=== PATIENT | female | born 1955 | race Caucasian/White ===

== ENCOUNTER 2016-10-25 07:46 | Inpatient (IN) | payer BC ==
[2016-10-24 11:29] VITALS: BMI 31.2
[~2016-10-25] VITALS: Ht 154.9 cm; Wt 79.5 kg
[2016-10-25] VITALS (31 sets, daily range): BP systolic 120–161; BP diastolic 50–75; PULSE 64–97; RESP 11–21; Ht 154.9 cm; Wt 79.5 kg
[~2016-10-25 07:46] MED LIST: CEFAZOLIN 1 GM INJ ONE; CEFAZOLIN 1 GM/50 ML (PMX) 50 ML IVPB SCH
[2016-10-25] MEDS ORDERED: ESCI10TA PO (08:30)
[2016-10-25] MEDS ORDERED: LEVE750T70 PO (08:30)
[2016-10-25] MEDS ORDERED: BENA20TA48 PO (08:30)
[2016-10-25] MEDS ORDERED: LEVO50TA71 PO (08:31)
[2016-10-25] MEDS ORDERED: SIMV40TA3 PO (08:31)
--- NOTE | 2016-10-25 09:30 | RADRPT ---
PROCEDURE: XR Chest. CLINICAL INDICATION: Chest pain, preoperative TECHNIQUE: Single frontal view of the chest was obtained. COMPARISON: None FINDINGS: The heart is within normal limits. The thoracic aorta is calcified. There are mild right lower lobe linear atelectatic changes. The lungs are otherwise clear. There is no pleural effusion or pneumothorax. RPTAT: AA IMPRESSION: Mild right lower lobe linear atelectatic changes. Calcified aorta consistent with atherosclerotic disease. .Chris Bruce MD, MD Date Time Electronically viewed and signed by .Chris Bruce MD, MD on 10/25/2016 09:30 .S/
[2016-10-25 09:47] LABS: ADD SCAN DIFF NO
[2016-10-25] MEDS ORDERED: ACETAMINOPHEN 1000MG/100ML IV 100 ML ONE (09:49)
[2016-10-25 09:51] LABS: BASOPHILS % 0.5 % (0.0-2.0); EOSINOPHILS # 0.1 10^3/ul (0.0-0.5); EOSINOPHILS % 2.2 % (0.0-7.0); HEMATOCRIT 33.1 % (37.0-47.0); HEMOGLOBIN 11.1 g/dl (12.0-16.0); LYMPHOCYTES # 1.9 10^3/ul (0.8-2.9); LYMPHOCYTES % 50.5 % (15.0-51.0); MEAN CORPUSCULAR HEMOGLOBIN 32.8 pg (29.0-33.0); MEAN CORPUSCULAR HGB CONC 33.5 g/dl (32.0-37.0); MEAN CORPUSCULAR VOLUME 97.9 fl (82.0-101.0); MEAN PLATELET VOLUME 9.6 fl (7.4-10.4); MONOCYTE # 0.3 10^3/ul (0.3-0.9); MONOCYTES % 8.2 % (0.0-11.0); NEUTROPHIL # 1.4 10^3/ul (1.6-7.5); NEUTROPHILS % 38.3 % (39.0-77.0); PLATELET COUNT 194 10^3/UL (140-415); RED BLOOD COUNT 3.38 10^6/ul (4.20-5.40); RED CELL DISTRIBUTION WIDTH 11.9 % (11.5-14.5); WHITE BLOOD COUNT 3.7 10^3/ul (4.8-10.8)
[2016-10-25 10:08] LABS: ALBUMIN 4.8 g/dl (3.3-4.9); ALBUMIN/GLOBULIN RATIO 1.54; BILIRUBIN,INDIRECT 0.1 mg/dl (0-1.1); BILIRUBIN,TOTAL 0.1 mg/dl (0.2-1.3); CALCIUM 9.5 mg/dl (8.4-10.2); CREATININE 0.84 mg/dl (0.44-1.00); POTASSIUM 4.4 mmol/L (3.5-5.1); TOTAL PROTEIN 7.9 g/dl (6.1-8.1)
[2016-10-25] MEDS ORDERED: PROPOFOL 20 ML ONE (10:10)
[2016-10-25] MEDS ORDERED: FENTAnyl 50 MCG/ML VIAL ONE (10:10)
[2016-10-25] MEDS ORDERED: DEXAMETHASONE 4 MG/ML 1 ML INJ ONE (10:10)
[2016-10-25] MEDS ORDERED: ONDANSETRON 4 MG INJ ONE (10:10)
[2016-10-25] MEDS ORDERED: SUCCINYLCHOLINE CHLORIDE 100 MG/5 ML SYG IV ONE (10:10)
[2016-10-25] MEDS ORDERED: ROCURONIUM 50 MG INJ ONE (10:10)
[2016-10-25] MEDS ORDERED: FAMOTIDINE 20 MG INJ ONE (10:10)
[2016-10-25] MEDS ORDERED: MIDAZOLAM 1 MG/ML 2 ML INJ ONE (10:10)
[2016-10-25] MEDS ORDERED: METOCLOPRAMIDE 10 MG INJ ONE (10:14)
[2016-10-25 10:25] LABS: INR 0.91; PROTIME 12.2 Sec (12.2-14.2)
[2016-10-25] MEDS ORDERED: HYDROmorphONE (0.2 MG/ML) 10ML SYG IV PRN ×3 (10:30)
[2016-10-25] MEDS ORDERED: MIDAZOLAM 1 MG/ML 2 ML INJ IV PRN (10:30)
[2016-10-25] MEDS ORDERED: DIPHENHYDRAMINE 50 MG INJ IV PRN (10:30)
[2016-10-25] MEDS ORDERED: ONDANSETRON 4 MG INJ IV PRN ×2 (10:30→12:30)
[2016-10-25] MEDS ORDERED: FENTAnyl 50 MCG/ML VIAL IV PRN ×2 (10:30)
[2016-10-25] MEDS ORDERED: morphine 10 MG INJ ONE (11:22)
[2016-10-25] MEDS ORDERED: morphine 2 MG INJ IV PRN (12:30)
[2016-10-25] MEDS ORDERED: ACETAMINOPHEN 1000MG/100ML IV 100 ML IVPB PRN (12:30)
[2016-10-25] MEDS: D5W-0.45 NACL + KCL 20 MEQ 1,000 ML IV SCH ×2 (14:45→20:00)
--- NOTE | 2016-10-25 16:38 | RADRPT ---
Vent Rate: 57 bpm RR Interval: 0 msec NM Interval: 170 msec QRS Duration: 82 msec QT Interval: 428 msec QTC Interval: 416 msec P-R-T Sylvia: 55 - 36 - 51 degrees Sinus bradycardia Otherwise normal ECG Electronically Signed By: Usama Treadwell [id number]
[2016-10-25] MEDS ORDERED: ATORVASTATIN 20 MG TAB PO SCH (21:00)
[2016-10-25] MEDS: LEVETIRACETAM 750 MG TAB PO SCH (22:22)
[2016-10-26 02:17] VITALS: BP 149/73; RESP 18
[2016-10-26] MEDS: D5W-0.45 NACL + KCL 20 MEQ 1,000 ML IV SCH ×2 (03:20→12:23)
[2016-10-26] MEDS ORDERED: LEVOTHYROXINE 50 MCG TAB PO SCH (07:00)
[2016-10-26 08:00] VITALS: BP 130/61; RESP 18
[2016-10-26] MEDS ORDERED: BENAZEPRIL 20 MG TAB PO SCH (09:00)
[2016-10-26] MEDS ORDERED: ESCITALOPRAM 10 MG TAB PO SCH (09:00)
[2016-10-26] MEDS: LEVETIRACETAM 750 MG TAB PO SCH (10:15)
--- NOTE | 2016-10-26 12:34 | HP ---
Date/Time of Note Date/Time of Note DATE: 10/26/16 TIME: 12:26 Assessment/Plan VTE Prophylaxis VTE Prophylaxis Intervention: SCD's Lines/Catheters IV Catheter Type (from Nrsg): Saline Lock Assessment/Plan Assessment/Plan -Right breast cancer, status post right modified mastectomy by Dr. Piedra on . continue Tylenol and morphine for pain and Zofran as needed for nausea. Follow-up surgical recommendations -Hypertension, continue benazepril. -Hyperlipidemia, continue statin -Hypothyroidism, continue Synthroid -Seizure disorder, continue Keppra. -Depression, patient follows-up with a psychiatrist as an outpatient. Further recommendations based on clinical course. End of care discussed with Dr. Ayala HPI/ROS Admit Date/Time Admit Date/Time Oct 25, 2016 at 07:46 Hx of Present Illness The patient is a 61-year-old female with right breast cancer status post chemotherapy. Patient also had a past medical history positive for hypothyroidism, hypercholesterolemia, hypertension, seizure disorder, and depression. Patient was brought to the hospital and underwent right modified radical mastectomy by Dr. Piedra. Postoperatively patient experienced moderate pain and and nausea, and patient was admitted for further evaluation and management. ROS Constitutional: no complaints Eyes: no complaints ENT: no complaints Respiratory: no complaints Cardiovascular: no complaints Gastrointestinal: no complaints Genitourinary: no complaints Skin: no complaints Neurologic: no complaints Endocrine: no complaints Lymphatic: no complaints Psychological: depression PMH/Family/Social Past Medical History Seizure disorder, depression Medical History: high cholesterol, hypertension, hypothyroid Past Surgical History Status post tubal ligation 17 years ago Family History Significant Family History: no pertinent family hx Social History Alcohol Use: none Smoking Status: Never smoker Drug Use: none Exam/Review of Systems Vital Signs Vitals Vital Signs Date Time Temp Pulse Resp B/P Pulse Ox O2 Delivery O2 Flow Rate FiO2 10/26/16 08:00 98.3 90 18 130/61 96 10/25/16 21:00 Nasal Cannula 10/25/16 20:54 2.0 Intake and Output 10/25/16 10/25/16 10/26/16 15:00 23:00 07:00 Intake Total 950 ml 480 ml 1959 ml Output Total 265 ml 285 ml 330 ml Balance 685 ml 195 ml 1629 ml Exam Constitutional: alert, oriented Psych: nl mood/affect Head: atraumatic, normocephalic Neck: supple Respiratory: normal air movement Cardiovascular: nl pulses Gastrointestinal: non-tender, soft Musculoskeletal: nl gait and stance Extremities: normal pulses Neurological: nl mental status Skin: nl turgor, other (Status post right radical mastectomy) Lymph: nl lymph nodes Labs Result Diagram: 10/25/1630 10/25/16 0930 Medications Medications Current Medications Ondansetron HCl 4 mg 4 mg Q6H PRN IV NAUSEA AND/OR VOMITING; Start 10/25/16 at 12:30 Potassium Chloride/Dextrose/ Sod Cl (D5-1/2ns + KCl 20 Meq) 1,000 ml @ 125 mls/ hr Q8H IV Last administered on 10/26/16 12:23; Admin Dose 125 MLS/HR; Start at 12:01 Morphine Sulfate 2 mg 2 mg Q1H PRN IV PAIN; Start 10/25/16 at 12:30 Acetaminophen (Ofirmev 1000mg/ 100ml Iv) 100 ml @ 400 mls/hr Q6H PRN IVPB PAIN ; Start 10/25/16 at 12:30 Benazepril HCl (Lotensin) 20 mg DAILY PO Last administered on 10/26/16 10:15; Admin Dose 20 MG; Start 10/26/16 at 09:00 Escitalopram Oxalate (Lexapro) 10 mg DAILY PO Last administered on 10/26/16 10 :15; Admin Dose 10 MG; Start 10/26/16 at 09:00 Levetiracetam (Keppra) 750 mg BID PO Last administered on 10/26/16 10:15; Admin Dose 750 MG; Start 10/25/16 at 21:00 Atorvastatin Calcium (Lipitor) 20 mg DAILY@21 PO Last administered on 22:22; Admin Dose 20 MG; Start 10/25/16 at 21:00 JERRY PEARSON Oct 26, 2016 12:34
[2016-10-26] MEDS ORDERED: HYDR-906 PO (12:38)
[2016-10-26 14:36] VITALS: BP 113/56; RESP 18
--- NOTE | 2016-10-28 21:12 | DS ---
Date/Time of Note Date/Time of Note DATE: 10/28/16 TIME: 21:11 Discharge Summary Admission/Discharge Info Admit Date/Time Oct 25, 2016 at 07:46 Discharge Date/Time Oct 26, 2016 at 15:15 Patient Condition: Good Hx of Present Illness The patient is a 61-year-old female with right breast cancer status post chemotherapy. Patient also had a past medical history positive for hypothyroidism, hypercholesterolemia, hypertension, seizure disorder, and depression. Patient was brought to the hospital and underwent right modified radical mastectomy by Dr. Piedra. Postoperatively patient experienced moderate pain and and nausea, and patient was admitted for further evaluation and management. Hospital Course -Right breast cancer, status post right modified mastectomy by Dr. Piedra on . continue Tylenol and morphine for pain and Zofran as needed for nausea. Follow-up surgical recommendations -Hypertension, continue benazepril. -Hyperlipidemia, continue statin -Hypothyroidism, continue Synthroid -Seizure disorder, continue Keppra. -Depression, patient follows-up with a psychiatrist as an outpatient. Home Meds Active Scripts Hydrocodone/Acetaminophen ([place] 5-325 Tablet) 1 Each Tablet, 1 EACH PO Q4, #30 TAB Prov:JERRY PEARSON 10/26/16 Reported Medications Simvastatin (Simvastatin) 40 Mg Tablet, 40 MG PO QHS, #30 TAB 10/25/16 Levothyroxine Sodium* (Levoxyl*) 50 Mcg Tablet, 50 MCG PO BEFORE BREAKFAST, #30 TAB 10/25/16 Levetiracetam* (Keppra*) 750 Mg Tablet, 750 MG PO BID, TAB 10/25/16 Escitalopram Oxalate* (Lexapro*) 10 Mg Tablet, 10 MG PO DAILY, #30 TAB 10/25/16 Benazepril Hcl* (Benazepril Hcl*) 20 Mg Tablet, 20 MG PO DAILY, #30 TAB 10/25/16 Follow-up Plan f/up with Dr Piedra in 5-7 days. Primary Care Provider MD LILI Moreira SVETLANA Oct 28, 2016 21:12
--- NOTE | 2016-10-30 09:32 | OPR ---
DATE OF OPERATION: 10/25/2016 PREOPERATIVE DIAGNOSIS: Locally advanced right breast cancer. POSTOPERATIVE DIAGNOSIS: Locally advanced right breast cancer. OPERATION PERFORMED: Right modified radical mastectomy. ANESTHESIA: General. ANESTHESIOLOGIST: Nurse net making supervisor, [place] CRNA SURGEON: Dr. Piedra. PST SUPERVISOR: Dr. Jensen INDICATIONS FOR PROCEDURE: Patient is an unfortunate 61-year-old female, who presented for further presented with a very large, at least 4 cm right breast mass, biopsy confirmed, HER2-positive breast cancer. The patient was counseled as to the benefits of neoadjuvant chemotherapy. She agreed to undergo chemotherapy and relatively good response. Subsequently, she was counseled as to the need for right modified radical mastectomy. She consented and was scheduled for surgery. OPERATIVE PROCEDURE: Patient was brought to the operative theater, placed under general anesthesia. The right breast and axillary region was prepped and draped in the usual sterile fashion. The planned elliptical incision including the skin over the residual tumor and including the nipple areolar complex was demarcated with a marking pen. The incision was then carried out with 15 blade scalpel. Subcutaneous tissue was dissected with cautery. The skin edges were all elevated with Allis-Starr skin clamps and using cautery, skin flaps were developed, first superiorly to the clavicle, medially to the sternal border, inferiorly to the inframammary fold and laterally until the latissimus dorsi muscle was identified throughout its course. Mastectomy then took place from medial to lateral using cautery at the border of the pectoralis major muscle. The pectoralis minor muscle was identified. The clavipectoral fascia was incised. With blunt dissection along the chest wall, the long thoracic nerve was identified and kept out of harm's way. More superiorly, the axillary vein and thoracodorsal neurovascular bundle were identified and kept out of harm's way. Node-bearing tissue between the thoracodorsal nerve and the long thoracic nerves were meticulously harvested using LigaSure device. At this point, there were final connective tissue attachments to the latissimus dorsi muscle, which were transected with cautery. Specimen Was oriented and sent for permanent pathologic analysis. The wound was irrigated. Minimal bleeding was controlled with cautery. Two number 10 flat Amandeep-Simpson drains were then brought through the right mid axillary line, one was cut to size and laid over the pectorals major muscle, the 2nd was cut to size and laid within the axilla. Both drains were secured in place with 2-0 nylon sutures in standard fashion and the skin was reapproximated with skin jenny. Patient tolerated the procedure well. ESTIMATED BLOOD LOSS: 40 mL. COMPLICATIONS: There were no complications and the patient was transported in stable condition to recovery room where a circumferential compression dressing was applied. Dictated By: Tyler Piedra MD /amelia/my /Document#: [id number]
== END 2016-10-26 15:15 | disposition home or self-care (01) | DRG 583 ==
LOC: REC 07:46 → EDSTATUS 12:30 → MS3 14:30 → MS2 18:20
PROVIDERS: ADMIT Surgery Surgical Oncology; ATTEND Surgery Surgical Oncology
PROC: 0HTT0ZZ Resection of Right Breast, Open Approach (ICD-10-PCS; principal; 2016-10-25 10:30)
DX: C50.911 Malignant neoplasm of unspecified site of right female breast (principal); I10 Essential (primary) hypertension; G40.909 Epilepsy, unspecified, not intractable, without status epilepticus; E03.9 Hypothyroidism, unspecified; E78.5 Hyperlipidemia, unspecified; F32.9 Major depressive disorder, single episode, unspecified; R11.0 Nausea; R52 Pain, unspecified; Z92.21 Personal history of antineoplastic chemotherapy
CPT/HCPCS: 71010; 80053; 85025; 85610; 85730; 88307; 93005; J0131; J0690; J1100; J1170; J2250; J2270; J2405; J2765; J3010; J3480; J7999